=== PATIENT | male | born 1970 | race Caucasian/White ===

== ENCOUNTER 2022-11-14 11:10 | Emergency (ER) | payer OTHER ==
[~2022-11-14] VITALS: Ht 190.5 cm; Wt 90.5 kg
[~2022-11-14 11:10] MED LIST: GLIPIZIDE5 MG PO; METFORMIN HCL1000 MG PO; NORCO 5-325 TA1 EACH PO
--- OUTSIDE RECORDS SUMMARY | 2022-11-14 11:18 | XMS ---
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 EChan VISIT COUNT (12 MO.) 1 CANDELARIA [place] TOTAL 1 NOTE: Visits indicate total known visits. ED/UCC VISIT TRACKING (12 MO.) 11/14/2022 11:12 [facility] [place] TYPE: Emergency COMPLAINT: - BACK PAIN INPATIENT VISIT TRACKING (12 MO.) No inpatient visits to display in this time frame [id number]
[2022-11-14] MEDS ORDERED: METHYLPREDNISOLO4 M1 PO (12:15)
[2022-11-14] MEDS ORDERED: DIAZEPAM5 MG PO (13:43)
[2022-11-14] MEDS ORDERED: GABAPENTIN300 MG PO (14:48)
[2022-11-14] MEDS ORDERED: LISINOPRIL2.5 MG PO (14:48)
[2022-11-14] MEDS ORDERED: XARELTO20 MG PO (14:48)
[2022-11-14] MEDS ORDERED: METOPROLOL SUCC25 MG PO (14:49)
[2022-11-14] MEDS ORDERED: METFORMIN HCL500 M1 PO (14:49)
[2022-11-14] MEDS ORDERED: ROSUVASTATIN CA20 MG PO (14:49)
== END 2022-11-14 13:58 | disposition home or self-care (01) ==
LOC: ED 11:10
DX: S29.012A Strain of muscle and tendon of back wall of thorax, initial encounter (principal); M54.42 Lumbago with sciatica, left side; W22.8XXA Striking against or struck by other objects, initial encounter; E11.9 Type 2 diabetes mellitus without complications; Z79.899 Other long term (current) drug therapy; Z79.84 Long term (current) use of oral hypoglycemic drugs
CPT/HCPCS: 99283; J8540

== ENCOUNTER 2023-02-16 07:38 | Emergency (ER) | payer OTHER ==
[~2023-02-16] VITALS: Ht 190.5 cm; Wt 80.1 kg
--- OUTSIDE RECORDS SUMMARY | ~2023-02-16 | XMS | Continuity of Care Document ---
Demographics + + + | Address | [address] | | | [place] [address] | + + + | Preferred Language | Unknown | + + + | Marital Status | Never | + + + | Spiritism Affiliation | Unknown | + + + | Race | White | + + + | Ethnic Group | or | + + + Author + + + | Author | [facility] | + + + | Organization | [facility] | + + + | Address | [address] | | | [place] [address] | + + + | Phone | | + + + Care Team Providers + + + + | Care Manager Operations And Procurement Name | Role | Phone | + + + + Unavailable | Unavailable | + + + + Unavailable | Unavailable | + + + + Allergies No information. Encounters No information. Functional Status No information. Immunizations No information. Medications + + + + | date | description | facility | + + + + | 2022-11-14 00:00 | RIVAROXABAN | [facility] | + + + + | 2022-11-14 00:00 | DIAZEPAM | [facility] | + + + + | 2022-11-14 00:00 | GABAPENTIN | [facility] | + + + + | 2022-11-14 00:00 | LISINOPRIL | [facility] | + + + + | 2022-11-14 00:00 | METHYLPREDNISOLONE | [facility] | + + + + | 2022-11-14 00:00 | Rosuvastatin Calcium | [facility] | + + + + | 2022-11-14 00:00 | METFORMIN HCL | [facility] | + + + + | 2022-11-14 00:00 | METOPROLOL SUCCINATE | [facility] | + + + + Problems + + + + | date | description | facility | + + + + | 2022-11-14 00:00 | Sciatica of left side | [facility] | + + + + | 2022-11-14 00:00 | Muscle strain of left | [facility] | | | upper back | | + + + + Procedures No information. Results/Labs No information. Social History No information. Vital Signs + + + +---------+ | date | measurement | value | units | + + + +---------+ | 2022-11-14 00:00 | BMI | 24.9 | kg/m2 | + + + +---------+ | 2022-11-14 00:00 | BP_diastolic | 82 | mmHg | + + + +---------+ | 2022-11-14 00:00 | BP_systolic | 146 | mmHg | + + + +---------+ | 2022-11-14 00:00 | heart_rate | 74 | /min | + + + +---------+ | 2022-11-14 00:00 | height_metric | 190.5 | cm | + + + +---------+ | 2022-11-14 00:00 | height_standard | 75 | in | + + + +---------+ | 2022-11-14 00:00 | o2_saturation | 99 | % | + + + +---------+ | 2022-11-14 00:00 | respiration_rate | 16 | /min | + + + +---------+ | 2022-11-14 00:00 | temperature_metric | 36.67 | C | | | | | | + + + +---------+ | 2022-11-14 00:00 | | 98 | F | | | temperature_standar | | | | | d | | | + + + +---------+ | 2022-11-14 00:00 | weight_metric | 90.45 | kg | + + + +---------+ | 2022-11-14 00:00 | weight_standard | 199.4 | lb | + + + +---------+ | 2022-11-14 00:00 | weight_standard | 199.41 | lb | + + + +---------+"
--- OUTSIDE RECORDS SUMMARY | ~2023-02-16 | XMS | Continuity of Care Document ---
Demographics + + + | Address | [address] | | | [place] [address] | + + + | Preferred Language | Unknown | + + + | Marital Status | Never | + + + | Mormonism Affiliation | Unknown | + + + | Race | White | + + + | Ethnic Group | or | + + + Author + + + | Author | [facility] | + + + | Organization | [facility] | + + + | Address | [address] | | | [place] [address] | + + + | Phone | | + + + Care Team Providers + + + + | Care Psychologist Educational Name | Role | Phone | + + + + Unavailable | Unavailable | + + + + Unavailable | Unavailable | + + + + Allergies No information. Encounters No information. Functional Status No information. Immunizations No information. Medications + + + + | date | description | facility | + + + + | 2022-11-14 00:00 | RIVAROXABAN | [facility] | + + + + | 2022-11-14 00:00 | DIAZEPAM | [facility] | + + + + | 2022-11-14 00:00 | GABAPENTIN | [facility] | + + + + | 2022-11-14 00:00 | LISINOPRIL | [facility] | + + + + | 2022-11-14 00:00 | METHYLPREDNISOLONE | [facility] | + + + + | 2022-11-14 00:00 | Rosuvastatin Calcium | [facility] | + + + + | 2022-11-14 00:00 | METFORMIN HCL | [facility] | + + + + | 2022-11-14 00:00 | METOPROLOL SUCCINATE | [facility] | + + + + Problems + + + + | date | description | facility | + + + + | 2022-11-14 00:00 | Sciatica of left side | [facility] | + + + + | 2022-11-14 00:00 | Muscle strain of left | [facility] | | | upper back [...]
[~2023-02-16 07:38] MED LIST changes: +DIAZEPAM5 MG PO; +GABAPENTIN300 MG PO; +LISINOPRIL2.5 MG PO; +METFORMIN HCL500 M1 PO; +METHYLPREDNISOLO4 M1 PO; +METOPROLOL SUCC25 MG PO; +ROSUVASTATIN CA20 MG PO; +XARELTO20 MG PO
--- OUTSIDE RECORDS SUMMARY | 2023-02-16 07:40 | XMS ---
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 EChan VISIT COUNT (12 MO.) 2 CANDELARIA Malagon TOTAL 2 NOTE: Visits indicate total known visits. 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
[2023-02-16] MEDS ORDERED: AMOX TR-K CLV1 EAC1 PO (09:01)
[2023-02-16] MEDS ORDERED: BACTRIM DS TAB1 EACH PO (09:01)
[2023-02-16 09:10] VITALS: BP 138/88
== END 2023-02-16 09:10 | disposition home or self-care (01) ==
LOC: ED 07:38
DX: L03.116 Cellulitis of left lower limb (principal); E11.9 Type 2 diabetes mellitus without complications; Z79.899 Other long term (current) drug therapy; Z79.02 Long term (current) use of antithrombotics/antiplatelets; Z79.84 Long term (current) use of oral hypoglycemic drugs
CPT/HCPCS: 36415; 80053; 85025; 96365; 99283 25; A9270; J0295

== ENCOUNTER 2024-01-10 08:33 | Inpatient (IN) | payer OTHER ==
[~2024-01-10] VITALS: Ht 190.5 cm; Wt 85.5 kg
[~2024-01-10 08:33] MED LIST changes: +AMOX TR-K CLV1 EAC1 PO; +BACTRIM DS TAB1 EACH PO
--- OUTSIDE RECORDS SUMMARY | 2024-01-10 08:35 | XMS ---
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 Gus has no Care Guidelines for this patient. Avery VISIT COUNT (12 MO.) 3 CANDELARIA Malagon TOTAL 3 NOTE: Visits indicate total known visits. 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 - Presence of aortocoronary bypass graft - Type 2 diabetes mellitus without complications 02/16/2023 07:39 CAN[facility]ARIA [facility] [place] TYPE: Emergency COMPLAINT: - L TOE PAIN DIAGNOSES: - Cellulitis of left lower limb - correction (current) use of antithrombotics/antiplatelets - terminal gauger (current) use of oral hypoglycemic drugs - Other adjunct faculty for medical terminology (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
[2024-01-10] MEDS ORDERED: JARDIANCE10 MG PO (08:49)
[2024-01-10 09:42] LABS: BASOPHILS 0.7 % (0-2); EOSINOPHILS 0.8 % (0-6); HEMATOCRIT 41.6 % (35.0-50.0); HEMOGLOBIN 13.8 g/dL (12.0-18.0); LYMPHOCYTES 16.4 % (24-44); MCH 30.2 (27-36); MCHC 33.1 g/dl (30-36); MCV 91.3 fl (81-99); MONOCYTES 9.2 % (0-12); NEUTROPHILS 72.9 % (39-80); PLATELET COUNT 318 K/uL (140-440); RBC 4.56 M/ul (4.3-5.7); RDW 13.1 (10.5-15.0)
[2024-01-10 09:53] LABS: ALBUMIN 2.9 g/dL (3.4-5.0); ALBUMIN/GLOBULIN RATIO 0.55 (1.1-2.4); ANION GAP 14.5 (7-21); BILIRUBIN, TOTAL 0.3 ng/dL (0.2-1.0); BUN/CREATININE RATIO 12.85 (6.0-28.6); CALCIUM 9.2 mg/dL (8.5-10.1); CREATININE, SERUM 0.7 mg/dL (0.70-1.30); POTASSIUM 4.5 mmol/L (3.5-5.1); PROTEIN, TOTAL 8.2 g/dL (6.4-8.2)
[2024-01-10 11:00] LABS: ERYTHROCYTE SEDIMENTATION RATE 83
[2024-01-10] MEDS ORDERED: DEXTROSE 5% 1,000 ML IV PRN (11:30)
[2024-01-10] MEDS ORDERED: GLUCAGON,HUMAN RECOMBINANT 1 MG/ML VIAL SUB-Q PRN (11:30)
[2024-01-10] MEDS ORDERED: ondansetron HCL 4 MG/2 ML VIAL IV PRN (11:30)
[2024-01-10] MEDS ORDERED: IBLOOD GLUCOSE TEST STRIP 1 EA TEST XX PRN (11:30)
[2024-01-10] MEDS ORDERED: DEXTROSE 50% 50 ML SYR IV PRN ×2 (11:30)
[2024-01-10] MEDS ORDERED: ACETAMINOPHEN 325 MG TAB PO PRN (11:30)
[2024-01-10] MEDS ORDERED: HYDROCODONE/ACETA 5/325 TAB PO PRN (11:45)
[2024-01-10 12:00] VITALS: BP 161/81
[2024-01-10] MEDS ORDERED: PHARMACY RENAL DOSE ADJUSTMENT 1 DOSE MISC PO SCH (12:00)
[2024-01-10] MEDS ORDERED: INSULIN LISPRO 100 UNIT/ML ML SUB-Q SCH (12:00)
[2024-01-10] MEDS ORDERED: IBLOOD GLUCOSE TEST STRIP 1 EA TEST VI SCH (12:00)
--- NOTE | 2024-01-10 12:13 | NUR ---
PT UP TO ROOM IN WHEELCHAIR FROM ED. PT AMBULATES INDEPENDENTLY TO BED. VSS. PT ABLE TO ANSWER ADMISSION QUESTIONS APPROPRIATELY. PT STATES HE TAKES HIS BLOOD SUGAR ONCE A WEEK AT HOME AND THAT HE USES INSULIN AT NIGHT. EDUCATION ON BLOOD SUGAR CHECKS AND INSULIN USE HERE, PT VERBALIZES UNDERSTANDING. PT HAS HX OF TREMORS SINCE AGE 11, STATES HE IS SCHEDULED TO HAVE BRAIN SURGERY THIS YEAR. ALL EXTREMETIES AT NORMAL STRENGTH PER PT, PT ABLE TO PUSH AGAINST RESISTENCE WITH LLE WELL. L PEDAL PULSE FAINT, GENERALIZED EDEMA WITH REDNESS PRESENT. PHOTOS OF WOUNDS FROM ED ON CHART. TWO WOUNDS LOCATED ON L FOOT, ONE LATERAL AND THE OTHER PLANTAR. PT STATES THE PLANTAR WOUND HAS BEEN HEALING, BUT THE LATERAL WOUND HAS GOTTEN WORSE, PT STATES HE WAS SUPPOSED TO HAVE WOUND CARE, BUT THAT THEY NEVER CALLED. PT TAKEN TO MRI.
--- NOTE | 2024-01-10 13:20 | NUR ---
PT IN MRI.
[2024-01-10] MEDS ORDERED: TRAZODONE HCL100 MG PO (13:33)
[2024-01-10] MEDS ORDERED: LANTUS SOL100 UNIT/1 SUB-Q (13:34)
[2024-01-10 13:35] VITALS: BP 140/83
[2024-01-10] MEDS ORDERED: OZEMPIC0.25 MG/02 SUB-Q (13:35)
--- NOTE | 2024-01-10 13:59 | NUR ---
PT IN BED AWAKE WITH AT THE BEDSIDE. PT STATES NO NEEDS AT THIS TIME. CALL LIGHT WITHIN REACH.
--- NOTE | 2024-01-10 14:00 | NUR ---
Spoke with pts SO while he is having an MRI. She states they live in a 2 story home in [place]. They have 3 steps in the front and back of the house. Pt has been having some issues with steps recently. Pt has type 2 diabetes and has had issues with blisters. Per SO she checks his feet frequently as her sister in May due to her diabetes. Pt uses a cane. Pt plans on dc to home when cleared medically. He works from home. Both work and SO denies they have any financial issues. They share house hold chores. She denies needs. We discussed when MRI is completed there will be a clearer plan for dc. SO is very concerned for osteo diagnosis. Will fu tomorrow.
--- NOTE | 2024-01-10 14:48 | NUR ---
MED REC COMPLETE
--- NOTE | 2024-01-10 15:34 | NUR ---
PT STATES FOOT IS BLEEDING. SMALL AMOUNT OF SEROSANGUINOUS FLUID DRAINING FROM L FOOT WOUNDS, BOTH WOUNDS CLEANED WITH NS AND GAUZE. OPTIFOAM DRESSINGS APPLIED TO BOTH WOUNDS FOR COMFORT AND DRAINAGE. PT STATES NO FURTHER NEEDS AT THIS TIME. CALL LIGHT WITHIN REACH.
[2024-01-10] MEDS ORDERED: CEFEPIME HCL/D5W 1 GM/100 ML PIGGYBACK IV SCH (16:00)
[2024-01-10] MEDS ORDERED: DAPTOmycin 500 MG/10 ML VIAL IV SCH (16:00)
--- NOTE | 2024-01-10 16:35 | NUR ---
DR. AMAYA TO BEDSIDE.
--- NOTE | 2024-01-10 17:18 | NUR ---
PT AWAKE IN BED, REQUESTS NEW ICE PACK, GIVEN. PT STATES PAIN IS "FEELING BETTER AND MORE MANAGEABLE" AT THIS TIME. PT STATES NO FURTHER NEEDS, CALL LIGHT WITHIN REACH.
[2024-01-10 17:19] VITALS: BP 159/85
[2024-01-10 17:23] VITALS: BP 159/85
--- NOTE | 2024-01-10 18:54 | NUR ---
SCDs IN PLACE. PT STATES NO NEEDS AT THIS TIME, CALL LIGHT WITHIN REACH.
--- NOTE | 2024-01-10 19:39 | NUR ---
REPORT RECIEVED FROM DAY SHIFT RN. PATIENT RESTING IN BED WATCHING TV. PATIENT DENIES NEEDS AT THIS TIME. CALL LIGHT IN REACH.
[2024-01-10 20:33] VITALS: BP 130/81
--- NOTE | 2024-01-10 20:37 | NUR ---
FLORAL MANAGER ENTERED ROOM AND OBTAINED VITALS. INTAKE RECORDED AND NO NEW OUTPUT NOTED. PT STATES NO FURTHER NEEDS AT THIS TIME. RN NOTIFIED OF IV PUMP ALARM. CALL LIGHT PLACED WITHIN REACH.
[2024-01-10] MEDS ORDERED: GABAPENTIN 600 MG TAB PO SCH (21:00)
[2024-01-10] MEDS ORDERED: MELATONIN 3 MG TAB PO PRN (21:00)
[2024-01-10] MEDS ORDERED: TRAZODONE HCL 100 MG TAB PO SCH (21:00)
--- NOTE | 2024-01-10 21:42 | NUR ---
DISTRICT REPRESENTATIVE ENTERED ROOM AND DID BLOOD SUGAR CHECK. BLOOD SUGAR 180 AND DOCUMENTED. DISTRICT REPRESENTATIVE REFILLED PT ICE PACK REQUESTED BY PT. PT STATES NO FURTHER NEEDS AT THIS TIME. CALL LIGHT WITHIN REACH.
--- NOTE | 2024-01-10 22:04 | NUR ---
PATIENT RESTING IN BED. SCHEDULED MEDICATION ADMINISTERED. ASSESSMENT COMPLETE. PATIENT LLE DRESSING C/D/I. PATIENT STATES 03/23 "SHARPING SHOOTING PAIN OUT THE FAR RIGHT TOE UP MY LEG". PRN PAIN MEDICATION ADMINISTERED. IV ABX INFUSING PER ORDER. IV FLUSHES WNL. PATIENT REFUSING 2 AM VITALS BECAUSE "IF I WAKE UP DURING THE NIGHT, I WILL NOT GET BACK TO SLEEP". PATIENT EDUCATED TO CALL IF HE WAKES UP THROUGHOUT THE NIGHT AND WE CAN OBTAIN VITALS THEN. PATIENT AGREES. FRESH WATER PROVIDED. SCDs IN PLACE. PATIENT DENIES FURTHER NEEDS. CALL LIGHT IN REACH.
--- NOTE | 2024-01-11 00:08 | NUR ---
PATIENT RESTING IN BED WITH EYES CLOSED. RESPIRATION EVEN AND UNLABORED. CALL LIGHT IN REACH.
--- NOTE | 2024-01-11 02:01 | NUR ---
PATIENT RESTING IN BED ON LEFT SIDE WITH EYES CLOSED. RESPIRATIONS EVEN AND UNLABORED. CALL LIGHT IN REACH.
--- NOTE | 2024-01-11 02:16 | NUR ---
CALL LIGHT ANSWERED. IV PUMP ALARMING. NEW BAG IV ABX INFUSING PER ORDER. NO FURTHER NEEDS. CALL LIGHT IN REACH.
--- NOTE | 2024-01-11 03:01 | NUR ---
PATIENT RESTING IN BED WITH EYES CLOSED. RESPIRATIONS EVEN AND UNLABORED. CALL LIGHT IN REACH.
[2024-01-11 04:58] VITALS: BP 134/79
--- NOTE | 2024-01-11 05:27 | NUR ---
CALL LIGHT ANSWERED. SCD MACHINE ALARMING. VS AND I&Os OBTAINED AND RECORDED. L FOOT DRESSING C/D/I WITH MINIMAL DRY DRAINAGE BY GREAT TOE. PATIENT REPORTS 5/10 LLE PAIN. PRN PAIN MEDICATION ADMINISTERED. FRESH WATER PROVIDED. COFFEE PROVIDED. PATIENT REPORTS NO FURTHER NEEDS. CALL LIGHT IN REACH.
[2024-01-11 05:51] LABS: BASOPHILS 0.9 % (0-2); EOSINOPHILS 2.3 % (0-6); HEMATOCRIT 41.4 % (35.0-50.0); HEMOGLOBIN 13.7 g/dL (12.0-18.0); LYMPHOCYTES 26.8 % (24-44); MCH 30.1 (27-36); MCHC 33.2 g/dl (30-36); MCV 90.7 fl (81-99); MONOCYTES 12.1 % (0-12); NEUTROPHILS 57.9 % (39-80); PLATELET COUNT 338 K/uL (140-440); RBC 4.57 M/ul (4.3-5.7); RDW 13.3 (10.5-15.0)
[2024-01-11 06:10] LABS: ALBUMIN 2.7 g/dL (3.4-5.0); ALBUMIN/GLOBULIN RATIO 0.51 (1.1-2.4); ANION GAP 10.9 (7-21); BILIRUBIN, TOTAL 0.3 ng/dL (0.2-1.0); BUN/CREATININE RATIO 12.65 (6.0-28.6); CALCIUM 8.9 mg/dL (8.5-10.1); CREATININE, SERUM 0.79 mg/dL (0.70-1.30); MAGNESIUM 2.1 mg/dL (1.8-2.4); PHOSPHORUS, INORGANIC 4.1 mg/dL (2.5-4.9); POTASSIUM 3.9 mmol/L (3.5-5.1)
--- NOTE | 2024-01-11 06:48 | NUR ---
THIS RN AND DR AMAYA IN ROOM. VERIFIED WITH LAB THAT SOUNF CULTURE IS NOT YET COLLECTED. WOUND CULTURE OBTAINED AND SENT TO LAB.
--- NOTE | 2024-01-11 07:05 | NUR ---
REPORT RECIEVED FROM KJ DEUTSCH. PT SITTING UP IN BED AND RESPONDS WHEN ADDRESSED. PT REQUESTING COFFEE AND GINGERALE, PROVIDED. PT REPORTING DR. AMAYA "WAS IN THIS MORNING AND CHANGED THE DRESSING." PT DENIES ANY OTHER NEEDS AT THIS TIME. CALL LIGHT IN REACH.
--- NOTE | 2024-01-11 07:30 | NUR ---
spoke to jordin in lab regarding abx pt is on at time of wound culture collection. original order only listed keflex, unable to edit order from this end. jordin in lab to add iv abx cefepime and daptomycin.
--- NOTE | 2024-01-11 08:24 | NUR ---
PATIENT IN BED AT THIS TIME. CALL LIGHT WITHIN REACH, NO FURTHER NEEDS AT THIS TIME.
--- NOTE | 2024-01-11 08:49 | NUR ---
IN WITH SN SIA TO ADMINISTER MEDICAITONS, SEE MAR. PT SITTING UP IN BED AND RESPONDS WHEN ADDRESSED. PT TAKES PO MEDICAITONS WITH NO ISSUES. IV IN LEFT HAND PT REPORTING "PAIN WITH FLUSHING." NEW IV STARTED, SEE VASCULAR ACCESS. IV IN LEFT HAND REMOVED. PT REPORTING PAIN 5/10 TO LEFT FOOT. PT DENIES PRN PAIN MEDICATION WHEN OFFERED. ICE PACK PROVIDED PER PT REQUEST.
[2024-01-11] MEDS ORDERED: METOPROLOL SUCCINATE 25 MG TABCR PO SCH (09:00)
[2024-01-11 09:18] VITALS: BP 146/77
--- NOTE | 2024-01-11 09:20 | NUR ---
PATIENT IN BED AT THIS TIME. CALL LIGHT WITHIN REACH, NO FURTHER NEEDS AT THIS TIME.
--- NOTE | 2024-01-11 10:16 | NUR ---
IN TO ROUND ON PT. KJ POLLACK IN ASSISTING PT WITH SCD's. PT SITTING UP IN BED AND RESPONDS WHEN ADDRESSED. ASSESSMENT COMPLETE. LUNG SOUNDS CLEAR. BOWEL TONES ACTIVE. ABD SOFT AND NON-TENDER WTIH PALPATION. DRESSING TO LLE C/D/I. PER PT "DRESSING WAS CHANGED BY DR. AMAYA THIS MORNING." UNABLE TO ASSESS PEDAL PULSE TO LLE DUE TO DRESSING. CAPILLARY REFILL WNL. PEDAL PULSE ON RLE PALPABLE, STRONG. SCAB ON RIGHT FREEMAN NOTED. ON RIGHT FOOT PT NOTED TO HAVE BRUISE ON 3RD TOE SMALL TOE. PT MISSING TOE NAILS ON FIRST AND SECOND SMALL TOES ON RIGHT FOOT. ICE PACK TO LEFT FOOT IN PLACE. PT DENIES ANY OTHER NEEDS AT THIS TIME. CALL LIGHT IN REACH.
--- NOTE | 2024-01-11 10:55 | NUR ---
UR CLINICAL REVIEW: MCG: OSTEOMYELITIS GUIDELINE BIBI PATIENT MEETS CRITERIA INPT 01/10/24 @ 1133 PENDING AUTH PLAN TO RETURN HOME WHEN STABLE NEXT REVIEW 01/14/24
[2024-01-11 11:28] VITALS: BP 146/77
--- NOTE | 2024-01-11 11:37 | NUR ---
PATIENT IN BED AT THIS TIME. CALL LIGHT WITHIN REACH, NO FURTHER NEEDS AT THIS TIME.
--- NOTE | 2024-01-11 12:04 | NUR ---
IN WITH SN SIA TO ADMINISTER MEDICATION, SEE MAR. PT SITTING UP IN BED AND RESPONDS WHEN ADDRESSED. PT NOTED TO HAVE FOOD BROUGHT IN FROM FAMILY, BURGER AND FRIES. PTs AT BEDSIDE. FRIEND IN ROOM. PT REQUESTING ICE PACK, ICE PACK PROVIDED. PT DENIES ANY OTHER NEEDS AT THIS TIME. CALL LIGHT IN REACH.
--- NOTE | 2024-01-11 12:28 | NUR ---
DID HRLY ROUNDING ON PT, PT WAS EATING LUNCH THAT HIS BROUGHT HIM AND BOTH PT AND DIDNT NEED ANYTHING ELSE FROM ME. CALL LIGHT IS WITHIN REACH.
--- NOTE | 2024-01-11 12:57 | NUR ---
IN TO ANSWER CALL LIGHT. PT SITTING UP IN BED AND RESPONDS WHEN ADDRESSED. PT REQUESTING ICE CHIPS, ICE CHIPS PROVIDED. PT REQUESTING TO TALK TO VIDYA, CASEMANAGEMENT. CASEMANAGEMENT CALLED. PT DENIES ANY OTHER NEEDS AT THIS TIME. CALL LIGHT IN REACH.
[2024-01-11] MEDS ORDERED: SALINE LOCK FLUSH 5 ML SYR IV PRN (13:15)
--- NOTE | 2024-01-11 13:31 | NUR ---
IN WITH KJ BROOKS TO ROUND ON PT AND SECOND ASSESSMENT. PT SITTING UP IN BED VISITING WITH FRIEND, AT BEDSIDE. ASSESSMENT COMPLETE. PT LUNG SOUNDS CLEAR THROUGHOUT, HEART TONES HEARD. PULSES FELT BLE, FAINT, MILD SWELLING TO LLE. PT WITH ICE PACK TO LLE, PT STATES PAIN IS 5/10, DENIES PRN PAIN MEDICATION AT THIS TIME. PT DRESSING DRY/INTACT, SHADOWING NOTED IN TWO PLACES TO BOTTOM OF FOOT. FAUSTO EMMANUEL ARRIVES TO ASSIST PT INTO THE SHOWER. PT GETTING INTO SHOWER WITH FAUSTO EMMANUEL AT THIS TIME. NO OTHER NEEDS NOTED.
--- NOTE | 2024-01-11 13:31 | NUR ---
IN WITH SN SIA TO ROUND ON PT. PT SITTING UP IN BED AND RESPONDS WHEN ADDRESSED. IV ABX COMPLETE. PT SL AT THIS TIME. ASSESSMENT COMPLETE. LLE DRESSING D/I WITH SCANT SHADOWING NOTED TO BOTTOM OF DRESSING. CAPILLARY REFILL WNL, UNABLE TO ASSESS PEDAL PULSE. PEDAL PULSE IN RLE PALPABLE. PT REPORTING PAIN 5/10 TO LLE. PT DENIES PRN PAIN MEDICATION WHEN OFFERED. FAUSTO EMMANUEL IN TO ASSIST PT WITH SHOWER. PT DENIES ANY OTHER NEEDS FROM THIS RN. CALL LIGHT IN REACH. IN ROOM.
[2024-01-11 13:57] VITALS: BP 151/76
--- NOTE | 2024-01-11 14:11 | NUR ---
PATIENT IN BED AT THIS TIME. PATIENT WANTED A SHOWER, OIL WELL SHOOTER TAPED IV WITH ZIPLOC BAG AND TAPED DRESSING ON LEFT FOOT WITH BAG. WHILE PATIENT SHOWERED OIL WELL SHOOTER CHANGED LINENS AT THIS TIME. CALL LIGHT WITHIN REACH, NO FURTHER NEEDS AT THIS TIME.
--- NOTE | 2024-01-11 14:21 | NUR ---
ATTEMPTED VISIT DURING SPIRITUAL CARE ROUNDS. PT RECEIVING NURSING CARE. DID NOT INTERRUPT. PROVIDED PRAYER.
--- NOTE | 2024-01-11 14:48 | NUR ---
PT RESTING IN BED, AT BEDSIDE. IV ANTIBIOTICS STARTED AND INFUSING, IV SITE PATENT, NOT PAINFUL/NO REDNESS. PROVIDED PT FRESH ICE WATER. PT DENIES ANY FURTHER NEEDS, ALL PT CARE NEEDS MET.
--- NOTE | 2024-01-11 15:00 | NUR ---
Spoke with pt and SO, Nicole. Pt states he discussed IV antibiotics with Dr. Calderon and Dr. Stinson. He now would prefer to have them in his home with and and infusion pharmacy. Discussed with pt we can request orders, order HH, and an infusion pharmacy. They would like to use [facility] as it is close to them and the infusion pharmacy [facility] prefers. I will contact Dr. Stinson and Dr. Calderon for orders. We discussed Insurances don't always agree to pay for antibiotics in the home so orders will need to be sent. [place] also [place] at [place] 2 days [place] med[place] If home antibiotics approved pt will need to return to the hospital over the weekend until supplies can be delivered. Called [facility] and they would be able to see this pt on Monday if arrangements for meds, supplies, and PICC line to be placed.
--- NOTE | 2024-01-11 15:08 | NUR ---
CONNECTED WITH PARTNER IN [place]. LISTENED EMPATHETICALLY SHE TALKED OF SIMILAR RECENT INJURIES AND INFECTIONS IN HER FAMILY THAT ARE CAUSING CONCERN. PROVIDED SUPPORTIVE PRESENCE, PRAYER. PARTNER EXPRESSED GRATITUDE.
--- NOTE | 2024-01-11 15:14 | NUR ---
IN IV PUMP ALARING, RESOLVED. PT SITTING UP IN BED AND RESPONDS WHEN ADDRESSED. PT DENIES ANY OTHER NEEDS AT THIS TIME. CALL LIGHT IN REACH. AT BEDSIDE.
--- NOTE | 2024-01-11 16:00 | NUR ---
Several attempts to fax orders and chart to [facility]. Liz called and I gave her the pt's name and updated to pts need. She gave me her email and chart was emailed secure to [facility].
--- NOTE | 2024-01-11 16:31 | NUR ---
IN WITH SN SIA TO ADMINISTER MEDICATION, SEE MAR. PT SITTING UP IN BED. PT STATES "MY SAID MY AKLE FEELS WARMER THAN IT HAS ALL DAY, IV'E HAD ICE ON IT ALL DAY TOO." LEFT ANKLE UPON TOUCH IS NOTED TO FEEL WARM, NO REDNESS NOTED. EDEMA NOTED TO TOES. PT REPORTING INCREASED PAIN 01/21. DR. DEVINE NOTIFIED, TO ROOM. PER DR. DEVINE "LET'S CALL DR. AMYAA TO SEE WHAT HE THINKS AND WE ALSO NEED WOUND CARE/DRESSING CHANGE ORDERS." [address] AMAYA'S OFFICE AND TALKS TO DR. AMAYA. PER DR. AMAYA "I WAS JUST ON MY WAY OVER THERE." 1658 PRN MEDICATION ADMINISTERED, SEE MAR. PT TAKES PO MEDICAITON WITH NO ISSUES. LLE ELEVATED ON PILLOWS IN BED. PT DENIES ANY OTHER NEEDS AT THIS TIME. CALL LIGHT IN REACH. PT UPDATED ON POC. PT AGREEABLE.
--- NOTE | 2024-01-11 17:07 | NUR ---
IN TO ASSESS PT TEMPERATURE, NOTED WNL AT 98.5. DR. AMAYA PRESENT WITH PT LEFT FOOT UNDRESSED. DR AMAYA CLEANS WITH WOUND CLEANSER AND REDRESSES FOOT. CALL LIGHT IN REACH, NO OTHER NEEDS NOTED.
--- NOTE | 2024-01-11 17:09 | NUR ---
Chart faxed to [facility] with note stating pt may dc over the weekend, but more than likely will return to the hospital for antibiotics until medsand supplies are arranged. SO other will drive pt.
[2024-01-11 18:30] VITALS: BP 152/74
--- NOTE | 2024-01-11 19:47 | NUR ---
REPORT RECIEVED FROM DAY SHIFT RN. PATIENT RESTING IN BED BED, DENIES CURRENT NEEDS. CALL LIGHT IN REACH.
[2024-01-11 20:07] VITALS: BP 147/85
--- NOTE | 2024-01-11 20:22 | NUR ---
FIRE PREVENTION FORESTER CHECKED PT BLOOD SUGAR. PT STATES NO FURTHER NEEDS AT THIS TIME. CALL LIGHT WITHIN REACH.
--- NOTE | 2024-01-11 20:41 | NUR ---
PATIENT RESTING IN BED. VS AND I&Os OBTAINED AND RECORDED. NEW BAG IV FLUID INFUSING PER ORDER. IV FLUSHED AND WNL. BS OBTAINED AND RECORDED. SCHEDULED SS INSULIN ADMINISTERED. PATIENT DENIES FURTHER NEEDS AT THIS TIME. CALL LIGHT IN REACH.
--- NOTE | 2024-01-11 21:50 | NUR ---
PATIENT RESTING IN BED. SCHEDULED AND PRN PAIN MEDICATION ADMINISTERED. PATIENT DENIES NEEDS AT THIS TIME. SCDs IN PLACE. ASSESSMENT COMPLETE. PATIENT REPORTS MINIMAL PAIN, DENIES NEED FOR PAIN MEDICATION AT THIS TIME. LLE C/D/I WITH MINIMAL DRY DRAINAGE ON THE BOTTOM, NEAR THE GREAT BIG TOE. CALL LIGHT IN REACH. IV FLUSHES WNL.
--- NOTE | 2024-01-11 23:47 | NUR ---
PATIENT RESTING IN BED WITH EYES CLOSED. RESPIRATIONS EVEN AND UNLABORED. CALL LIGHT IN REACH. SCDs IN PLACE.
--- NOTE | 2024-01-12 01:54 | NUR ---
PATIENT RESTING IN BED WITH EYES CLOSED. RESPIRATIONS EVEN AND UNLABORED. NEW BAG ABX INFUSING PER ORDER. PATIENT DENIES THE NEED FOR PAIN MEDICATION AT THIS TIME. L FOOT DRESSING C/D/I WITH MINIMAL DRAINAGE NOTED BY GREAT TOE. NO FURTHER NEEDS AT THIS TIME. CALL LIGHT IN REACH.
--- NOTE | 2024-01-12 03:54 | NUR ---
PATIENT RESTING IN BED WITH EYES CLOSED. RESPIRATIONS EVEN AND UNLABORED. CALL LIGHT IN REACH.
[2024-01-12 05:08] VITALS: BP 131/73
--- NOTE | 2024-01-12 05:14 | NUR ---
REAL ESTATE PROFESSIONAL ENTERED ROOM AND OBTAINED VITALS AND I&O. PT STATES NO FURTHER NEEDS AT THIS TIME. CALL LIGHT WITHIN REACH.
--- NOTE | 2024-01-12 05:35 | NUR ---
PATIENT RESTING IN BED AND STATES "I THINK MY LEG LOOKS LESS SWOLLEN!". PATIENT REPORTS 5/10 LLE PAIN, PRN PAIN MEDICATION ADMINSITERED. FRESH ICE PACK AND COFFEE PROVIDED. SCDs IN PLACE. PATIENT DENIES FURTHER NEEDS. CALL LIGHT IN REACH.
--- NOTE | 2024-01-12 07:05 | NUR ---
REPORT RECIEVED FROM KJ DEUTSCH. PT SITTNIG UP IN BED. PT RESPONDS WHEN ADDRESSED. PT REPORTS DR. AMAYA WAS IN THIS MORNING AND CHANGED PTs DRESSING TO LEFT FOOT. ICE PACK NOTED TO BE IN PLACE ON LEFT FOOT. PTs LEFT FOOT ELEVATED ON 2 PILLOWS IN BED. PT DENIES ANY OTHER NEEDS AT THIS TIME. CALL LIGHT IN REACH.
[2024-01-12] MEDS ORDERED: ENOXAPARIN SODIUM 40 MG/0.4 ML SYR SUB-Q SCH (09:00)
[2024-01-12 09:13] VITALS: BP 148/84
[2024-01-12] MEDS ORDERED: DAPTOMYCIN500 MG IV (09:17)
[2024-01-12] MEDS ORDERED: CEFEPIME HCL1 GM IV (09:17)
[2024-01-12] MEDS ORDERED: HYDROCODON-ACE1 EA10 PO (09:20)
--- NOTE | 2024-01-12 09:56 | NUR ---
IN TO ADMINISTER MEDICAITON, SEE MAR. PT SITTING UP IN BED AND RESPONDS WHEN ADDRESSED. LLE ELEVATED ON PILLOWS. PT REPORTING PAIN 2-3/10. ASSESSMENT COMPLETE. LUNG SOUNDS CLEAR. BOWEL TONES ACTIVE. LLE DRESSING C/D/I. CAPILLARY REFILL WNL IN LLE. LLE POSTERIOR ANKLE WARM TO TOUCH. PEDAL PULSE TO RLE PALPABLE, STRONG. PT UPDATED ON PICC PLACEMENT. PT AGREEABLE. IV INFUSING WNL. PT DENIES ANY OTHER NEEDS AT THIS TIME. CALL LIGHT IN REACH.
[2024-01-12 10:29] VITALS: BP 138/81
--- NOTE | 2024-01-12 10:34 | NUR ---
SPOKE WITH EYAD AT [facility]. PATIENT'S INSURANCE WILL COVER HOME INFUSION. LIKELY SUPPLIES WILL BE DELIVERED MONDAY SO PATIENT WILL NEED TO RETURN OUTPATIENT UNTIL HE RECEIVES SUPPLIES.
--- NOTE | 2024-01-12 11:58 | NUR ---
PICC TEAM IN ROOM WITH PT. NO NEEDS FROM THIS RN.
--- NOTE | 2024-01-12 12:40 | NUR ---
IN TO GO OVER DC INSTRUCTIONS. VERBAL AND WRITTEN INSTRUCTIONS PROVIDED. PT VERBALIZES UNDERSTANDING. QUESTIONS ANSWERED. PT DENIES ANY OTHER NEEDS AT THIS TIME. CALL LIGHT IN REACH.
--- NOTE | 2024-01-12 13:52 | NUR ---
PICC LINE INSERTION WAS ASKED TO PLACE A PICC LINE FOR 6 WEEKS OF IV ABX. RISKS AND BENEFITS DISCUSSED WITH PT. PT WISHES TO PROCEED WITH RECEIVING THE PICC LINE. PT'S RIGHT ARM WAS EXAMINED. THE CEPHALIC, BRACHIAL, AND BASILIC VEINS WERE ALL EXAMINED. THE BRACHIAL VEIN WAS CHOSEN THE BEST OPTION THE BASILIC AND CEPHALIC VEINS WERE TOO SMALL FOR A 4 FR PICC LINE. THE BRACHIAL VEIN EASILY COLLAPSED, THE BRACHIAL ARTERY AND NERVE BUNDLE IDENTIFIED AND THE VEIN WILL BE ABLE TO BE ACCESSED. THE PICC LINE WILL TAKE UP APPROXIMATELY 35% OF THE VEIN ACCORDING TO THE SITE RITE 8. THE BRACHIAL VEIN WAS ACCESSED ON THE FIRS ATTEMPT. RED, NONPULSITILE BLOOD RETURNED. THE GUIDEWIRE, INTRODUCER, AND PICC LINE ALL EASILY ADVANCED UP THE VEIN. THE PT REPORTS NO PAIN WITH THE INSERTION. THE MAGNET TRACKER WAS HAVING INTERFERENCE WITH THE STERNAL WIRES FROM PT'S PREVIOUS SURGERY IN 2014. A CHEST XRAY WAS DONE TO CONFIRM PLACEMENT THE MAGNET TRACKER WAS NOT A RELIABLE INDICATOR. THE CHEST XRAY SHOWED THE PICC LINE NEEDED TO BE RETRACTED. PICC LINE PULLED BACK 3 CM AND REDRESSED STERILLY. REPEAT CHEST XRAY CONFIRMED PROPER PLACEMENT OF THE PICC LINE. PT EDUCATION PROVIDED. PT IDENIFICATION CARD GIVEN WITH TRIMMED CM, CM EXPOSED, AND ARM CIRCUMFERNECE. PT STATES UNDERSTANDING OF ALL INSTRUCTIONS. PT'S NURSE UPDATED ABOUT PT'S NEED FOR IV HEPARIN AND CAP BEFORE LEAVING.
[2024-01-12 13:55] VITALS: BP 141/85
== END 2024-01-12 13:55 | disposition home or self-care (01) | DRG 638 ==
LOC: ED 08:33 → MS 11:33
PROVIDERS: Emergency Medicine; ADMIT Family Medicine; ATTEND Family Medicine
PROC: 02HV33Z Insertion of Infusion Device into Superior Vena Cava, Percutaneous Approach (ICD-10-PCS; principal; 2024-01-12 12:15)
DX: E11.69 Type 2 diabetes mellitus with other specified complication (principal); M86.172 Other acute osteomyelitis, left ankle and foot; F17.210 Nicotine dependence, cigarettes, uncomplicated; F10.90 Alcohol use, unspecified, uncomplicated; L97.523 Non-pressure chronic ulcer of other part of left foot with necrosis of muscle; Z98.890 Other specified postprocedural states; E11.42 Type 2 diabetes mellitus with diabetic polyneuropathy; L97.513 Non-pressure chronic ulcer of other part of right foot with necrosis of muscle; Z79.899 Other long term (current) drug therapy; Z79.01 Long term (current) use of anticoagulants; Z79.811 Long term (current) use of aromatase inhibitors; E11.621 Type 2 diabetes mellitus with foot ulcer; Z89.421 Acquired absence of other right toe(s)
CPT/HCPCS: 36415; 36569; 71045; 73630; 73723; 80053; 82553; 83036; 83735; 84100; 85025; 85651; 86140; 87040; 87070; 87075; 87186; 87205; 99284-25; A9270; A9577; C1751; J0692; J0878; J1650; J1815

== ENCOUNTER 2024-04-12 07:45 | Day surgery (SDC) | payer OTHER ==
[2024-04-10 14:21] VITALS: BP 152/86
[~2024-04-12] VITALS: Ht 190.5 cm; Wt 90.0 kg
[~2024-04-12 07:45] MED LIST changes: +CEFAZOLIN SODIUM 1 GM/10 ML SYR IV SCH; +CEFAZOLIN SODIUM 2 GM/20 ML SYR IV SCH; +CEFEPIME HCL1 GM IV; +CEPHALEXIN500 MG PO; +CIPRO500 MG PO; +DAPTOMYCIN500 MG IV; +HYDROCODON-ACE1 EA10 PO; +IBLOOD GLUCOSE TEST STRIP 1 EA TEST VI PRN; +JARDIANCE10 MG PO; +LACTATED RINGER'S 1,000 ML IV SCH; +LANTUS SOL100 UNIT/1 SUB-Q; +LIDOCAINE HCL 1% 5 ML SDV INJ ONE; +OZEMPIC0.25 MG/02 SUB-Q; +TRAZODONE HCL100 MG PO
[2024-04-12 07:58] VITALS: BP 153/81
[2024-04-12] MEDS ORDERED: DEXAMETHASONE SOD PHOS 4 MG/ML VIAL ONE (09:10)
[2024-04-12] MEDS ORDERED: LIDOCAINE HCL 2% 20 ML MDV ONE (09:11)
[2024-04-12] MEDS ORDERED: Ropivacaine HCl 0.5% 30 ML VIAL ONE (09:11)
[2024-04-12] MEDS ORDERED: VANCOMYCIN HCL 500 MG VIAL ONE (09:17)
[2024-04-12] MEDS ORDERED: propofoL 200 MG/20 ML VIAL ONE ×3 (09:18→10:43)
[2024-04-12] MEDS ORDERED: fentaNYL citrate 100 MCG/2 ML VIAL ONE (09:18)
[2024-04-12] MEDS ORDERED: KETOROLAC TROMETHAMINE 30 MG/ML VIAL ONE (09:55)
[2024-04-12 11:22] VITALS: BP 130/81
--- NOTE | 2024-04-12 11:56 | NUR ---
04/12/24 1156 Cervantes[address]acey 1057: PATIENT ARRIVED TO PACU AWAKE. 1102: O2 MASK REMOVED. PATIENT ON ROOM AIR. 1105: PATIENT GIVEN ICE WATER TO SIP ON. RATES PAIN 1/10 IN LEFT FOOT. 1115: PATIENT STATES READY TO GO HOME. EDUCATED THAT STILL NEEDS XRAY AND DISCHARGE INSTRUCTIONS. 1123: LEFT FOOT X-RAY COMPLETE. DISCHARGE INSTRUCTIONS GIVEN. PATIENT GETTING DRESSED. 1132: IV DC'D WNL. TIP INTACT. DRESSING APPLIED. PATIENT DISCHARGED TO HOME WITH VIA WHEELCHAIR.
--- NOTE | 2024-04-15 07:00 | OR ---
[facility] [address] [place], [place] [address] Signed DATE OF OPERATION: 04/12/2024 SURGEON: Marco Calderon DPM PREOPERATIVE DIAGNOSES: 1. Diabetic ulcer, left foot. 2. Osteomyelitis, left 5th digit and left 5th metatarsal. POSTOPERATIVE DIAGNOSES: 1. Diabetic ulcer, left foot. 2. Osteomyelitis, left 5th digit and left 5th metatarsal. ANESTHESIA: IV general with local block, left foot. ELECTRONIC SCIENCE TEACHER: Jim. SPECIMENS TO PATHOLOGY: 1. Bone and soft tissue of left 5th digit amputation, including ulcer excision. 2. Bone of left 5th metatarsal, also the proximal section of the metatarsal sent separately with the proximal cut margin inked to better identify presence of remaining osteomyelitis. PROCEDURES: 1. Amputation, left 5th digit. 2. Debridement of ulcer and bone, left 5th metatarsal. DESCRIPTION OF PROCEDURE: The patient was brought to the operating room and placed on the table in the supine position. Anesthesia Department administered IV sedation, after which a local block was given to the left foot using a total of 8 mL of 1:1 mixture of 2% lidocaine plain and 0.5% ropivacaine plain. The left leg and foot was prepped and draped in the usual sterile manner and an Esmarch was used for hemostasis. Attention was initially directed to the left 5th digit, where a racquet style incision was made distally on the toe, leaving the toenail structures and distal soft tissue on the toe intact, while removing the remainder of the soft tissues and excising the bone Electronically Signed By: MARCO CALDERON DPM 04/15/24 0700 PATIENT NAME: KETAN AMADO OPERATIVE REPORT DATE OF : 68 REPORT #: [id number] PHYSICIAN: MARCO CALDERON DPM PCP: JOSHUA MURRY MD REPORT IS CONFIDENTIAL AND NOT TO BE RELEASED WITHOUT AUTHORIZATION [facility] [address] [place], [place] [address] Signed of the toe, which was disarticulated proximally and removed leaving the soft tissue as a possible flap for closure. With the toe amputation procedure, the remaining soft tissues showed very little necrotic changes, primarily necrotic tissue was at the proximal end near the MTPJ. At this time, attention was directed to the ulcer site, lateral left 5th metatarsal head area and the 5th metatarsal. Preoperative MRI showed bone changes throughout the 5th metatarsal, therefore the plan was for excision of majority, possibly all of the 5th metatarsal. At this time, the incision from the dorsum of the 5th digit curved in a plantar direction to meet the ulcer at the lateral 5th metatarsal head. The incision then started from the proximal end of the ulcer and extended laterally along the 5th metatarsal to the 5th metatarsal base area. The incision was made deep to bone and soft tissues were reflected to expose the 5th metatarsal. The 5th metatarsal also showed a fracture on the preoperative imaging, and the distal portion of the metatarsal removed initially, the remaining portion of the metatarsal freed from the soft tissue attachments, and using the saw the bone was sectioned at about the two-thirds or three-quarter merced approximately. The remaining bone was examined and using intraoperative fluoroscopy to determine the level of final bone cut. A section of the base of the 5th metatarsal was left intact and with the final bone cut, the bone was solid and hard while using saw with the proximal bone cut. Using the bone probe, the bone was noted to be solid both to the cut surface as well as to the cortical margins. At this time, the surgical site was debrided with hand instrumentation, removing any remaining necrotic tissue. The surgical site then irrigated with copious amounts of normal saline and any remaining soft necrotic soft tissue debrided at this time. The surgical site was then closed using 3-0 nylon monofilament suture. Prior to closure, calcium sulfate antibiotic beads were placed into the wound, these contain vancomycin and the void of the 5th metatarsal excision was used as a channel, in which to place the antibiotic beads throughout the entire wound site. Dressings then applied consisting of Adaptic, Betadine soaked gauze, dry gauze, ABD pad, Flexicon, and Coban for mild compression. INTRAOPERATIVE COMPLICATIONS: None. ESTIMATED BLOOD LOSS: Less than 5 mL. The patient tolerated the procedure and the anesthesia well and left the operating room with vital signs stable and vascular status intact to the left foot as evidenced by immediate hyperemia with removal of the Esmarch. Electronically Signed By: MARCO CALDERON DPM 04/15/24 0700 PATIENT NAME: KETAN AMADO OPERATIVE REPORT DATE OF : 68 REPORT #: [id number] PHYSICIAN: MARCO CALDERON DPM PCP: JOSHUA MURRY MD REPORT IS CONFIDENTIAL AND NOT TO BE RELEASED WITHOUT AUTHORIZATION [address] [address] Signed ANGELA Grant/MODL /[id number] Copies: ~ Electronically Signed By: MARCO CALDERON DPM 04/15/24 0700 PATIENT NAME: ANEUDYKETAN OPERATIVE REPORT DATE OF : 68 REPORT #: [id number] PHYSICIAN: MARCO CALDERON DPM PCP: JOSHUA MURRY MD REPORT IS CONFIDENTIAL AND NOT TO BE RELEASED WITHOUT AUTHORIZATION
--- NOTE | 2024-04-18 16:07 | PATH ---
[facility] [address] [place], [place] [address] Signed SPECIMEN(S): A LEFT 5TH TOE, METATARSAL AND ULCER SPECIMEN(S): B PROXIMAL END OF METATARSAL SPECIMEN SOURCE: A. LEFT 5TH TOE, METATARSAL AND ULCER B. PROXIMAL END OF METATARSAL CLINICAL HISTORY: Diabetic foot ulcer, osteomyelitis FINAL PATHOLOGIC DIAGNOSIS: A. Left 5th toe, metatarsal and ulcer: - Ulcerated toe with acute and chronic soft tissue inflammation and adjacent acute and chronic osteomyelitis. - Acute and chronic inflammation extends to the inked soft tissue and bone margins. B. Proximal end of metatarsal: - Bone with slight marrow fibrosis and acute and chronic inflammation, suspicious for osteomyelitis. JVR:llc MICROSCOPIC EXAMINATION: Histologic sections of all submitted blocks are examined by light microscopy. These findings, together with the gross examination, support the pathologic diagnosis. GROSS DESCRIPTION: A. The specimen, labeled and designated "FrancinevazquezKarma, " and designated on the requisition "left fifth toe metatarsal and ulcer," is received in formalin and consists of 4.6 x 1.7 x 1.5 cm disarticulated toe. The skin surface is pale pink with a white smooth nail. The specimen edge with disarticulated bone is inked blue. Separate within the container are four portions of skin, connective tissue and bone that measure 5.7 x 3.8 x 1.9 cm in aggregate. The portion of skin is white and smooth with a red granular lesion that is 2.2 x 1.2 cm and abuts the closest skin specimen edge. The specimen edge of the skin is inked green. The remaining tissue fragments are inked black and sectioned displaying and underlying pink softened bone. Metal Mover sections are submitted in cassettes A1-A2 and placed into Decal Stat prior to processing. PATIENT NAME: KETAN AMADO PATHOLOGY DATE OF : 68 REPORT #: [id number] PHYSICIAN: [employer] CHARISMA PCP: JOSHUA MURRY MD REPORT IS CONFIDENTIAL AND NOT TO BE RELEASED WITHOUT AUTHORIZATION [facility] [address] [place], [place] [address] Signed B. The specimen, labeled and designated "Karma Amado, " and designated on the requisition "proximal end of metatarsal, proximal and inked," is received in formalin and consists of 2.1 x 1.2 x 1.0 cm cross-section of metatarsal. The resection margins are clean sawn with one inked identifying the proximal margin. Cut sections reveal a yellow-chamberlain firm bony cut surface with surrounding white cartilaginous tissue. The bone resection margin is shaved and submitted in cassette B1, placed into Decal Stat prior to processing. FB (under the direct supervision of a pathologist) The Gross Description was prepared using a voice recognition system. The report was reviewed for accuracy; however, sound-alike word errors, addition and/or deletions may occur. If there is any question about this report, please contact Client Services. PERFORMING LABORATORY: Technical component was performed by [employer] [employer], [address] [place] [id number] (CLIA# [id number]). Professional interpretation was performed by [facility], [address] [place] [phone] (CLIA#: [id number]). Diagnostician: Juan Arredondo MD Pathologist Electronically Signed 04/18/2024 Copies: ~ PATIENT NAME: KETAN AMADO PATHOLOGY DATE OF : 68 REPORT #: [id number] PHYSICIAN: MERARY ZAFAR PCP: JOSHUA MURRY MD REPORT IS CONFIDENTIAL AND NOT TO BE RELEASED WITHOUT AUTHORIZATION
== END 2024-04-12 11:32 | disposition home or self-care (01) ==
LOC: DS 07:45 → OPS 07:45 → DS 10:00 → OPS 10:00
PROVIDERS: ATTEND Podiatrist Foot Surgery
PROC: 0QBP0ZZ Excision of Left Metatarsal, Open Approach (ICD-10-PCS; 2024-04-12)
PROC: 0Y6Y0Z0 Detachment at Left 5th Toe, Complete, Open Approach (ICD-10-PCS; principal; 2024-04-12 10:00)
DX: E11.621 Type 2 diabetes mellitus with foot ulcer (principal); L97.524 Non-pressure chronic ulcer of other part of left foot with necrosis of bone; E11.69 Type 2 diabetes mellitus with other specified complication; M86.172 Other acute osteomyelitis, left ankle and foot; E11.42 Type 2 diabetes mellitus with diabetic polyneuropathy; F17.200 Nicotine dependence, unspecified, uncomplicated; Z79.4 Long term (current) use of insulin; Z79.899 Other long term (current) drug therapy
CPT/HCPCS: 01462; 73620; 73630; C1713; J0690; J1100; J1885; J2704; J2795; J3010; J3370